=== PATIENT | male | born 1945 | race Caucasian/White ===

== ENCOUNTER 2018-07-08 10:12 | Outpatient (CLI) | payer MEDICARE | END 2018-07-08 10:13 | disposition critical access hospital (66) | LOC: EMS 10:12 | PROVIDERS: ATTEND Surgery | DX: H53.8 Other visual disturbances (principal) | CPT/HCPCS: A0425; A0429 ==

== ENCOUNTER 2018-07-08 10:40 | Emergency (ER) | payer BC, MEDICARE ==
--- NOTE | 2018-07-08 11:19 | ED Physician Documentation ---
PD HPI OPHTHO - Stated complaint Stated Complaint: BLURRED VISION - Chief complaint Chief Complaint: General - History obtained from History obtained from: Patient - History of Present Illness Timing - onset: Last night Timing - details: Still present Location: Both Associated symptoms: Decreased vision, Other (Blurry vision.) Similar symptoms before: Has not had sx before - Additional information Additional information: The patient is a 73-year-old male who presents complaining of blurring of his vision. He first noticed it last night while working at his computer, and it continued this morning. He describes it as blurring of his vision. He denies any pain in his eyes, denies headache, nausea or vomiting. He denies history of similar symptoms in the past. He initially stopped at a medic station this morning, where his blood pressure was found to be above 220 systolic. He has never been treated for hypertension, and has no history of heart disease or CVA. He does wear corrective lenses. He also has history of restless leg syndrome. He has never been treated for diabetes, but about one year ago, he reports having an elevated blood sugar in the 170's. Review of Systems Constitutional: denies: Fever, Fatigue Eyes: reports: Decreased vision. denies: Photophobia, Discharge Ears: denies: Tinnitus/ringing Nose: denies: Congestion Throat: denies: Sore throat Cardiac: denies: Chest pain / pressure, Palpitations Respiratory: denies: Dyspnea, Cough GI: denies: Abdominal Pain, Nausea, Vomiting : denies: Dysuria Skin: denies: Rash Musculoskeletal: denies: Neck pain, Back pain, Extremity swelling Neurologic: denies: Focal weakness, Numbness, Altered mental status, Headache PD PAST MEDICAL HISTORY - Past Medical History Past Medical History: Yes Cardiovascular: High cholesterol : Other Other Past Medical History: restless leg syndrome - Past Surgical History Past Surgical History: Yes General: Other - Present Medications Home Medications: Ambulatory Orders Medication Instructions Recorded Confirmed Pramipexole Di-HCl [Mirapex] 3 tab ORAL TID 07/08/18 07/08/18 - Allergies Allergies/Adverse Reactions: Allergies Allergy/AdvReac Type Severity Reaction Status Date / Time Sulfa (Sulfonamide Allergy Intermediate Dizziness Verified 07/08/18 10:48 Antibiotics) - Social History Does the pt smoke?: No Smoking Status: Never smoker Does the pt drink ETOH?: Yes ETOH Use: Wine, Beer Does the pt have substance abuse?: No - Immunizations Immunizations are current?: Yes - POLST Patient has POLST: No PD ED PE NORMAL - Vitals Vital signs reviewed: Yes (hypertensive) - General General: Alert and oriented X 3, Well developed/nourished - HEENT HEENT: Atraumatic, PERRL, EOMI, Pharynx benign, Other (Visual acuity 20/70 right, 20/70 left.) - Neck Neck: Supple, no meningeal sign, No adenopathy, No JVD - Cardiac Cardiac: RRR, No murmur - Respiratory Respiratory: No respiratory distress, Clear bilaterally - Abdomen Abdomen: Soft, Non tender - Back Back: No CVA TTP - Derm Derm: No rash - Extremities Extremities: No edema, No calf tenderness / cord - Neuro Neuro: Alert and oriented X 3, No motor deficit, No sensory deficit, Normal speech Eye Opening: Spontaneous Motor: Obeys Commands Verbal: Oriented GCS Score: 15 Results - Vitals Vitals: Vital Signs - 24 hr 07/08/18 07/08/18 07/08/18 10:43 11:24 14:04 Temperature 36.2 C L Heart Rate 78 69 68 Respiratory 18 16 14 Rate Blood Pressure 195/95 H 159/89 H 156/83 H O2 Saturation 97 96 97 07/08/18 07/08/18 07/08/18 14:16 17:06 19:05 Temperature Heart Rate 66 67 84 Respiratory 14 16 23 Rate Blood Pressure 156/83 H 161/94 H 141/89 H O2 Saturation 96 98 96 07/08/18 19:24 Temperature 36.8 C Heart Rate 65 Respiratory 18 Rate Blood Pressure 141/89 H O2 Saturation 98 Oxygen O2 Source Room air - EKG (time done) 10:48 Rate: Rate (enter#) (67) Rhythm: NSR [place]: Normal Intervals: Normal NV QRS: Normal Ischemia: Normal ST segments Computer interpretation: Agree with computer - Labs Labs: Laboratory Tests 07/08/18 07/08/18 10:55 10:55 WBC 5.1 RBC 5.52 Hgb 15.3 Hct 45.9 MCV 83.2 MCH 27.8 MCHC 33.4 RDW 14.4 Plt Count 157 MPV 9.5 Neut # (Auto) 3.2 Lymph # (Auto) 1.4 [place] # (Auto) 0.2 Eos # (Auto) 0.1 Baso # (Auto) 0.0 Absolute Nucleated RBC 0.00 Nucleated RBC % 0.1 Sodium 133 L Potassium 4.6 Chloride 99 L Carbon Dioxide 28 Anion Gap 6.0 BUN 19 Creatinine 0.9 Estimated GFR (MDRD) 83 L Glucose 333 H Calcium 9.7 - Rads (name of study) Head CT Radiology: Prelim report reviewed, EMP read contemporaneously, See rad report (Unremarkable noncontrast head CT for the patient's age.) PD MEDICAL DECISION MAKING - ED course Complexity details: reviewed results, re-evaluated patient, considered differential, d/w patient, d/w family, d/w life consultant ED course: The patient's presentation is significant for hypertensive urgency and blurring of his vision. The possibility of intracerebral ischemia remains a potential etiology. Noncontrast head CT is negative. MRI/MRA was not able to be of performed because the machine is currently out of service. His initial blood pressure in the emergency department was 195/95. It gradually came down to 156/84 without any specific treatment. However it began going back up, and when it reached 177/109, he was treated with IV labetalol, 5 mg in consultation with Dr. Ortiz at [facility]. His blood pressure subsequently came down to 149/81. His initial blood sugar was elevated at 333. He was treated with 5 units of regular insulin subcutaneously. Subsequent blood sugar had improved to 230. I discussed his condition with Dr. Ortiz who is on-call for his primary physician, Dr. Harden. He advises transfer to [facility] for further evaluation and treatment. I then discussed his condition with Dr. Cristobal, hospitalist at [facility], who will accept the patient in transfer. Transfer forms were completed. Departure - Departure Disposition: 02 Transfer Acute Care Hosp Clinical Impression: Blurring of visual image of both eyes, Hypertensive urgency, Hyperglycemia Condition: Stable Discharge Date/Time: 07/08/18 19:40
[2018-07-08 11:36] LABS: CALCIUM 9.7 mg/dL (8.5-10.3); CREATININE 0.9 mg/dL (0.6-1.2)
--- NOTE | 2018-07-08 12:05 | CT Report ---
Reason: New onset visual impairment. Procedure Date: 07/08/2018 Accession Number: [id number] / [id number] Procedure: CT - Head W/O CPT Code: FULL RESULT: EXAM: CT HEAD EXAM DATE: 07/08/2018 11:42 AM. CLINICAL HISTORY: New onset visual impairment. COMPARISON: None. TECHNIQUE: Multiaxial CT images were obtained from the foramen magnum to the vertex. Reformats: Sagittal and coronal. IV contrast: None. In accordance with CT protocol optimization, one or more of the following dose reduction techniques were utilized for this exam: automated exposure control, adjustment of mA and/or KV based on patient size, or use of iterative reconstructive technique. FINDINGS: Parenchyma: No intraparenchymal hemorrhage. No evidence of mass, midline shift, or CT findings of acute infarction. James-white differentiation is distinct. Extraaxial Spaces: Normal for age. No subdural or epidural collections identified. Ventricles: The ventricles and cortical sulci are within expected range for the patient's age. Sinuses and orbits: Imaged paranasal sinuses, orbits, and mastoids show no significant abnormality. Bones: No evidence of fracture or calvarial defect. Other: None. IMPRESSION: Unremarkable noncontrast head CT for patient age. RADIA
[2018-07-08] MEDS ORDERED: INSULIN REGULAR HUMAN 100 UNIT/1 ML 10 ML MDV SUBQ STA (13:58)
[2018-07-08] MEDS ORDERED: ASPIRIN CHEW 81 MG TABLET PO STA (16:41)
[2018-07-08] MEDS ORDERED: LABETALOL 20 MG/4 ML SYRINGE IVP STA (16:41)
[2018-07-08 17:27] LABS: BASOPHILS % (AUTO) 0.7 %; EOSINOPHILS # (AUTO) 0.1 10^3/uL (0.0-0.7); EOSINOPHILS % (AUTO) 2.7 %; HGB - HEMOGLOBIN 15.3 g/dL (14.0-18.0); LYMPHOCYTES # (AUTO) 1.4 10^3/uL (1.5-3.5); LYMPHOCYTES % (AUTO) 28.2 %; MEAN CORPUSCULAR HEMOGLOBIN 27.8 pg (27.0-31.0); MEAN CORPUSCULAR HGB CONC 33.4 g/dL (32.0-36.0); MEAN CORPUSCULAR VOLUME 83.2 fL (80.0-94.0); MEAN PLATELET VOLUME 9.5 fL (7.4-11.4); MONOCYTES # (AUTO) 0.2 10^3/uL (0.0-1.0); MONOCYTES % (AUTO) 4.8 %; NEUTROPHILS # (AUTO) 3.2 10^3/uL (1.5-6.6); NEUTROPHILS % (AUTO) 63.6 %; PLT - PLATELET COUNT 157 10^3/uL (130-450); RED BLOOD COUNT 5.52 10^6/uL (4.70-6.10); RED CELL DISTRIBUTION WIDTH 14.4 % (12.0-15.0); WHITE BLOOD COUNT 5.1 x10^3/uL (4.8-10.8)
[2018-07-08 19:06] VITALS: BP 141/89
== END 2018-07-08 19:40 | disposition short-term general hospital (02) ==
LOC: EDUNIT# → ED 10:40
DX: H53.8 Other visual disturbances (principal); R73.9 Hyperglycemia, unspecified; I16.0 Hypertensive urgency; E78.00 Pure hypercholesterolemia, unspecified
CPT/HCPCS: 36415; 70450; 80048; 85025; 93005; 96374; 99285; A9270; J1815

== ENCOUNTER 2018-07-08 19:43 | Outpatient (CLI) | payer MEDICARE | END 2018-07-08 19:44 | disposition short-term general hospital (02) | LOC: EMS 19:43 | PROVIDERS: ATTEND Surgery | DX: I16.0 Hypertensive urgency (principal) | CPT/HCPCS: A0170; A0425; A0426 ==

== ENCOUNTER 2019-07-11 21:12 | Emergency (ER) | payer MEDICARE ==
[2019-07-11 21:43] LABS: BILIRUBIN,URINE NEGATIVE (NEGATIVE); GLUCOSE, URINE (UA) >=1000 mg/dL (NEGATIVE); KETONES,URINE (UA) NEGATIVE (NEGATIVE); LEUKOCYTE ESTERASE, URINE NEGATIVE (NEGATIVE); NITRITE,URINE NEGATIVE (NEGATIVE); OCCULT BLOOD,URINE NEGATIVE (NEGATIVE); PH,URINE 5.5 PH (5.0-7.5); PROTEIN,URINE NEGATIVE (NEGATIVE); UROBILINOGEN,URINE 0.2 (NORMAL) E.U./dL (NORMAL)
[2019-07-11 21:45] LABS: CLARITY,URINE CLEAR (CLEAR)
--- NOTE | 2019-07-11 22:23 | ED Physician Documentation ---
PD HPI NVD - Stated complaint Stated Complaint: BP CONCERN/BLURRED VISION - Chief complaint Chief Complaint: General - History obtained from History obtained from: Patient - History of Present Illness Timing - onset: How many days ago (1-2) Timing - duration: Days (1-2) Timing - details: Gradual onset, Still present Associated symptoms: Dizzy (feeling of weakness and lightheaded with some nausea today, some yesterday. Noted his blood sugar was elevated today. Had run out of metformin a week ago and had not gotten refill from PMD as yet. He says "my usually takes care of those things". Has noted polyuria the past several days.), Loss of appetite. No: Fever, Chest pain Contributing factors: Diabetes. No: Sick contact, Bad food, Travel, Alcohol use Similar symptoms before: Has not had sx before Recently seen: Not recently seen Review of Systems Constitutional: denies: Fever, Chills Nose: denies: Rhinorrhea / runny nose, Congestion Throat: denies: Sore throat Cardiac: denies: Chest pain / pressure, Palpitations, Pedal edema, Calf pain Respiratory: denies: Dyspnea, Cough, Wheezing GI: reports: Nausea. denies: Abdominal Pain, Vomiting, Diarrhea : reports: Frequency. denies: Dysuria Neurologic: reports: Generalized weakness, Headache (mild). denies: Focal weakness, Numbness, Near syncope, Altered mental status Endocrine: reports: Polyuria. denies: Weight loss PD PAST MEDICAL HISTORY - Past Medical History Past Medical History: Yes Cardiovascular: None (borderline HTN but not on any meds.), High cholesterol Respiratory: None Neuro: None Endocrine/Autoimmune: Type 2 diabetes : Other - Past Surgical History Past Surgical History: Yes General: Other - Present Medications Home Medications: Ambulatory Orders Medication Instructions Recorded Confirmed Pramipexole Di-HCl [Mirapex] 3 tab ORAL TID 07/08/18 07/08/18 Metformin HCl 500 mg PO BID #60 tablet 07/12/19 - Allergies Allergies/Adverse Reactions: Allergies Allergy/AdvReac Type Severity Reaction Status Date / Time Sulfa (Sulfonamide Allergy Intermediate Dizziness Verified 07/11/19 21:19 Antibiotics) - Social History Does the pt smoke?: No Smoking Status: Never smoker Does the pt drink ETOH?: Yes Does the pt have substance abuse?: No - Immunizations Immunizations are current?: Yes - POLST Patient has POLST: No PD ED PE NORMAL - Vitals Vital signs reviewed: Yes - General General: Alert and oriented X 3, No acute distress, Well developed/nourished - HEENT HEENT: Ears normal, Moist mucous membranes, Pharynx benign - Neck Neck: Supple, no meningeal sign, No adenopathy - Cardiac Cardiac: RRR, No murmur - Respiratory Respiratory: Clear bilaterally - Abdomen Abdomen: Normal bowel sounds, Soft, Non tender, Non distended - Derm Derm: Normal color, Warm and dry - Extremities Extremities: No tenderness to palpate, Normal ROM s pain, No edema, No calf tenderness / cord - Neuro Neuro: Alert and oriented X 3, No motor deficit, Normal speech Results - Vitals Vitals: Vital Signs - 24 hr 07/11/19 07/11/19 07/11/19 21:15 21:19 22:43 Temperature 36.5 C Heart Rate 72 72 62 Respiratory 16 16 19 Rate Blood Pressure 184/90 H 184/90 H 150/85 H O2 Saturation 95 95 96 07/11/19 07/12/19 23:45 00:33 Temperature Heart Rate 62 65 Respiratory 16 18 Rate Blood Pressure 154/85 H 150/84 H O2 Saturation 96 97 Oxygen O2 Source Room air - Labs Labs: Laboratory Tests 07/11/19 07/11/19 07/11/19 21:23 23:35 23:35 WBC 5.6 RBC 5.45 Hgb 15.2 Hct 45.3 MCV 83.1 MCH 27.9 MCHC 33.6 RDW 13.5 Plt Count 189 MPV 10.7 Neut # (Auto) 3.3 Lymph # (Auto) 1.8 [place] # (Auto) 0.3 Eos # (Auto) 0.1 Baso # (Auto) 0.1 Absolute Nucleated RBC 0.00 Nucleated RBC % 0.0 VBG pH VBG pCO2 VBG pO2 VBG HCO3 VBG Total CO2 VBG O2 Saturation VBG Base Excess Sodium 138 Potassium 4.0 Chloride 102 Carbon Dioxide 26 Anion Gap 10.0 BUN 23 H Creatinine 0.8 Estimated GFR (MDRD) 94 Glucose 265 H Calcium 9.3 Magnesium 2.1 Total Bilirubin 1.5 H AST 17 ALT 22 Alkaline Phosphatase 82 Total Protein 7.1 Albumin 4.4 Globulin 2.7 Albumin/Globulin Ratio 1.6 Lipase 26 Urine Color YELLOW Urine Clarity CLEAR Urine pH 5.5 Ur Specific [place] 1.025 Urine Protein NEGATIVE Urine Glucose (UA) >=1000 H Urine Ketones NEGATIVE Urine Occult Blood NEGATIVE Urine Nitrite NEGATIVE Urine Bilirubin NEGATIVE Urine Urobilinogen 0.2 (NORMAL) Ur Leukocyte Esterase NEGATIVE Ur Microscopic Review NOT INDICATED Urine Culture Comments NOT INDICATED Serum Ketones NEGATIVE 07/11/19 23:35 WBC RBC Hgb Hct MCV MCH MCHC RDW Plt Count MPV Neut # (Auto) Lymph # (Auto) [place] # (Auto) Eos # (Auto) Baso # (Auto) Absolute Nucleated RBC Nucleated RBC % VBG pH 7.354 VBG pCO2 43.4 VBG pO2 50.1 H VBG HCO3 23.6 VBG Total CO2 25.0 VBG O2 Saturation 85.3 H VBG Base Excess -2.0 Sodium Potassium Chloride Carbon Dioxide Anion Gap BUN Creatinine Estimated GFR (MDRD) Glucose Calcium Magnesium Total Bilirubin AST ALT Alkaline Phosphatase Total Protein Albumin Globulin Albumin/Globulin Ratio Lipase Urine Color Urine Clarity Urine pH Ur Specific [place] Urine Protein Urine Glucose (UA) Urine Ketones Urine Occult Blood Urine Nitrite Urine Bilirubin Urine Urobilinogen Ur Leukocyte Esterase Ur Microscopic Review Urine Culture Comments Serum Ketones PD MEDICAL DECISION MAKING - ED course Complexity details: re-evaluated patient (feels better with IV fluids. ), considered differential (BP elevated at home, but has improved without intervention here. Has felt ill with sugars elevated due to ran out of metformin and his provider not gotten him refill yet. Feels better in ER with IV fluids. ), d/w patient Departure - Departure Disposition: Home, Self Care Clinical Impression: Transient hypertension, Hyperglycemia, Blurred vision, bilateral Condition: Stable Record reviewed to determine appropriate education?: Yes Instructions: ED Hyperglycemia Diabetic Follow-Up: Azeb Tsai MD [Primary Care Provider] - Prescriptions: Metformin HCl 500 mg PO BID #60 tablet Comments: Continue usual medications. Stay well-hydrated. Recheck your blood pressure daily or every few days over the next week or 2 to see if there is any trend of elevated blood pressure. Follow-up with your primary care. Discharge Date/Time: 07/12/19 00:55
[2019-07-11] MEDS ORDERED: SODIUM CHLORIDE 0.9% 1,000 ML IV ONE (23:12)
[2019-07-11 23:53] LABS: BASOPHILS # (AUTO) 0.1 10^3/uL (0.0-0.1); BASOPHILS % (AUTO) 0.9 %; EOSINOPHILS # (AUTO) 0.1 10^3/uL (0.0-0.7); EOSINOPHILS % (AUTO) 1.6 %; HGB - HEMOGLOBIN 15.2 g/dL (14.0-18.0); LYMPHOCYTES # (AUTO) 1.8 10^3/uL (1.5-3.5); LYMPHOCYTES % (AUTO) 32.7 %; MEAN CORPUSCULAR HEMOGLOBIN 27.9 pg (27.0-31.0); MEAN CORPUSCULAR HGB CONC 33.6 g/dL (32.0-36.0); MEAN CORPUSCULAR VOLUME 83.1 fL (80.0-94.0); MEAN PLATELET VOLUME 10.7 fL (7.4-11.4); MONOCYTES # (AUTO) 0.3 10^3/uL (0.0-1.0); NEUTROPHILS # (AUTO) 3.3 10^3/uL (1.5-6.6); NEUTROPHILS % (AUTO) 59.4 %; PLT - PLATELET COUNT 189 10^3/uL (130-450); RED BLOOD COUNT 5.45 10^6/uL (4.70-6.10); RED CELL DISTRIBUTION WIDTH 13.5 % (12.0-15.0); WHITE BLOOD COUNT 5.6 x10^3/uL (4.8-10.8)
[2019-07-12 00:08] LABS: KETONES, SERUM (ACETEST) NEGATIVE (NEGATIVE)
[2019-07-12 00:14] LABS: VBG PCO2 43.4 mmHg (41-51); VBG PH 7.354 (7.31-7.41); VBG PO2 50.1 mmHg (25-47)
[2019-07-12 00:15] LABS: ALBUMIN 4.4 g/dL (3.2-5.5); ALBUMIN/GLOBULIN RATIO 1.6 (1.0-2.2); ALKALINE PHOSPHATASE 82 IU/L (42-121); ALT ALANINE AMINOTRANSFERASE 22 IU/L (10-60); AST ASPARTATE AMINOTRANSFERASE 17 IU/L (10-42); BILIRUBIN,TOTAL 1.5 mg/dL (0.2-1.0); BUN - BLOOD UREA NITROGEN 23 mg/dL (6-20); CALCIUM 9.3 mg/dL (8.5-10.3); CARBON DIOXIDE - CO2 26 mmol/L (21-32); CHLORIDE 102 mmol/L (101-111); CREATININE 0.8 mg/dL (0.6-1.2); GFR - MDRD 94 (>89); GLUCOSE 265 mg/dL (70-100); LIPASE 26 U/L (22-51); MAGNESIUM 2.1 mg/dL (1.7-2.8); SODIUM 138 mmol/L (135-145); TOTAL PROTEIN 7.1 g/dL (6.7-8.2)
[2019-07-12 00:33] VITALS: BP 150/84
[2019-07-12] MEDS ORDERED: metFORMIN 500 MG TABLET PO STA (00:40)
== END 2019-07-12 00:55 | disposition home or self-care (01) ==
LOC: ED 21:12
DX: E11.65 Type 2 diabetes mellitus with hyperglycemia (principal); Z79.84 Long term (current) use of oral hypoglycemic drugs; T38.3X6A Underdosing of insulin and oral hypoglycemic [antidiabetic] drugs, initial encounter; Z91.138 Patient's unintentional underdosing of medication regimen for other reason; R03.0 Elevated blood-pressure reading, without diagnosis of hypertension; H53.8 Other visual disturbances
CPT/HCPCS: 36415; 80053; 81003; 82009; 82803; 83690; 83735; 85025; 96360; 99283; 99284; A9270; 81001; 87086

== ENCOUNTER 2022-11-03 12:20 | Outpatient (CLI) | payer MEDICARE, OTHER ==
[2022-11-03 14:23] LABS: BASOPHILS % (AUTO) 0.7 %; EOSINOPHILS # (AUTO) 0.1 10^3/uL (0.0-0.7); EOSINOPHILS % (AUTO) 1.2 %; HCT - HEMATOCRIT 48.1 % (42.0-52.0); HGB - HEMOGLOBIN 15.9 g/dL (14.0-18.0); LYMPHOCYTES # (AUTO) 1.7 10^3/uL (1.5-3.5); LYMPHOCYTES % (AUTO) 28.6 %; MEAN CORPUSCULAR HEMOGLOBIN 27.7 pg (27.0-31.0); MEAN CORPUSCULAR HGB CONC 33.1 g/dL (32.0-36.0); MEAN CORPUSCULAR VOLUME 83.8 fL (80.0-94.0); MEAN PLATELET VOLUME 10.7 fL (7.4-11.4); MONOCYTES # (AUTO) 0.3 10^3/uL (0.0-1.0); MONOCYTES % (AUTO) 5.3 %; NEUTROPHILS # (AUTO) 3.8 10^3/uL (1.5-6.6); NEUTROPHILS % (AUTO) 63.9 %; PLT - PLATELET COUNT 181 10^3/uL (130-450); RED BLOOD COUNT 5.74 10^6/uL (4.70-6.10); RED CELL DISTRIBUTION WIDTH 13.3 % (12.0-15.0); WHITE BLOOD COUNT 5.9 x10^3/uL (4.8-10.8)
[2022-11-03 14:54] LABS: ALBUMIN 4.5 g/dL (3.2-5.5); ALBUMIN/GLOBULIN RATIO 1.6 (1.0-2.2); CALCIUM 9.7 mg/dL (8.5-10.3); CREATININE 0.9 mg/dL (0.6-1.2); POTASSIUM 4.4 mmol/L (3.5-5.0); TOTAL PROTEIN 7.3 g/dL (6.7-8.2)
[2022-11-03 15:21] LABS: THYROID STIMULATING HORMONE 3.68 uIU/mL (0.34-5.60)
[2022-11-04 16:33] LABS: ESTIMATED AVERAGE GLUCOSE 286 mg/dL (70-100); HEMOGLOBIN A1c% 11.6 % (4.27-6.07)
== END 2022-11-03 12:21 | disposition home or self-care (01) ==
LOC: LAB.S 12:20
PROVIDERS: ATTEND Registered Nurse
DX: I10 Essential (primary) hypertension (principal); R53.83 Other fatigue; R26.81 Unsteadiness on feet; R26.89 Other abnormalities of gait and mobility; Z82.3 Family history of stroke; E11.65 Type 2 diabetes mellitus with hyperglycemia
CPT/HCPCS: 36415; 80053; 83036; 84443; 85025